=== PATIENT | male | born 1945 | race Caucasian/White ===

== ENCOUNTER 2022-03-09 05:54 | Day surgery (SDC) | payer MEDICARE, BC ==
[2022-03-07 16:17] LABS: CLARITY,URINE CLEAR (Clear); COLOR,URINE YELLOW (Yellow); GLUCOSE, URINE NEGATIVE (Neg); KETONES,URINE NEGATIVE (Neg); LEUKOCYTE ESTERASE ,URINE NEGATIVE (Neg); NITRITES, URINE NEGATIVE (Neg); OCCULT BLOOD,URINE NEGATIVE (Neg); PROTEIN,URINE NEGATIVE (Neg); UROBILINOGEN,URINE 0.2 E.U/dL (0.2-1.0)
[2022-03-07 16:18] LABS: UA COLLECTION TYPE NON-SPECIFIED
[2022-03-07 16:20] LABS: BASOPHILS # (AUTO) 0.1 X10'3 (0-0.2); BASOPHILS % (AUTO) 0.9 % (0-1); EOSINOPHILS # (AUTO) 0.1 X10'3 (0-0.9); LYMPHOCYTES # (AUTO) 2.1 X10'3 (1.1-4.8); MEAN CORPUSCULAR HEMOGLOBIN 30.1 PG (27.0-31.0); MEAN CORPUSCULAR HGB CONC 33.5 g/dL (33.0-36.5); MEAN CORPUSCULAR VOLUME 89.8 FL (78-98); MEAN PLATELET VOLUME 7.2 FL (7.4-10.4); MONOCYTES # (AUTO) 0.4 X10'3 (0-0.9); MONOCYTES % (AUTO) 6.4 % (2-12); NEUTROPHILS # (AUTO) 3.8 X10'3 (1.8-7.7); NEUTROPHILS % (AUTO) 59.7 % (42-75); PRE OP HEMATOCRIT 44.5 % (42.0-52.0); PRE OP HEMOGLOBIN 14.9 g/dL (14.0-17.9); PRE OP PLATELET COUNT 272 X10'3 (140-440); RED BLOOD COUNT 4.96 X10'6 (4.70-6.10); RED CELL DISTRIBUTION WIDTH 14.3 % (11.5-14.5)
[2022-03-07 16:35] LABS: ALBUMIN 3.7 G/DL (3.4-5.0); ALKALINE PHOSPHATASE 57 IU/L (46-116); BLOOD UREA NITROGEN 27 MG/DL (7-18); BUN/CREATININE RATIO 15.2 (5.4-32.0); CHLORIDE 103 MMOL/L (99-107); CREATININE 1.78 MG/DL (0.60-1.10); PRE OP ALT 29 U/L (30-65); PRE OP ANION GAP 10 (8-16); PRE OP AST 34 U/L (10-37); PRE OP BILIRUB, TOTAL 0.3 MG/DL (0.0-1.0); PRE OP GLUCOSE 143 MG/DL (70-104); PRE OP POTASSIUM 3.9 MMOL/L (3.4-5.1); PRE OP SODIUM 139 MMOL/L (135-145); TOTAL CARBON DIOXIDE 26.4 MMOL/L (24-32); TOTAL PROTEIN 7.4 G/DL (6.4-8.2); eGFR 38 ML/MIN
[~2022-03-09] VITALS: Ht 182.9 cm; Wt 97.1 kg
[2022-03-09] VITALS (14 sets, daily range): BP systolic 108–159; BP diastolic 58–111
[~2022-03-09 05:54] MED LIST: ASPI-611 PO; CHOL125C7 PO; DULA0.75 SQ; LANS30CA37 PO; LISI1TAB53 PO; METF500T PO; SIMV-45 PO; TEST200V33 IM; ceFAZolin inj. 2,000 MG in dextrose 5%-water 100 ML IV ONE; famotidine 20mg tablet PO ONE; ringers solution, lacted 1,000 ML IV SCH
--- NOTE | 2022-03-09 06:30 | NUR ---
IV PLACED BY STUDENT. 20G RAC, FLOW IS GOOD.
[2022-03-09] MEDS ORDERED: BUPIVAcaine/PF 2.5 mg/ml (0.25%) 30ml vial ONE (06:38)
[2022-03-09] MEDS ORDERED: rocuronium 10mg/ml inj IV ONE (07:51)
[2022-03-09] MEDS ORDERED: LIDOcaine 2% (20mg/ml) 5ml vial ONE (07:51)
[2022-03-09] MEDS ORDERED: propofol inj 20 ML IV ONE (07:51)
[2022-03-09] MEDS ORDERED: dexamethasone sod phosphate 4mg/ml inj. ONE (07:52)
[2022-03-09] MEDS ORDERED: ondansetron/PF 4mg/2ml inj ONE (07:52)
[2022-03-09] MEDS ORDERED: fentaNYL/PF 50MCG/1 ML 2ML syringe ONE (07:54)
[2022-03-09] MEDS ORDERED: morphine 2 MG/ML inj. syringe IV PRN (08:00)
[2022-03-09] MEDS ORDERED: ondansetron/PF 4mg/2ml inj IV PRN (08:00)
[2022-03-09] MEDS ORDERED: hydrALAZINE 20mg/ml inj. IV PRN (08:00)
[2022-03-09] MEDS ORDERED: labetalol 20mg/4ml (5mg/ml) syringe IV PRN (08:00)
[2022-03-09] MEDS ORDERED: ringers solution, lacted 1,000 ML IV SCH (08:00)
[2022-03-09] MEDS ORDERED: morphine 4 MG/ML inj SYRINge IV PRN (08:00)
[2022-03-09] MEDS ORDERED: fentaNYL/PF 50MCG/1 ML 2ML syringe IV PRN ×2 (08:00)
[2022-03-09] MEDS ORDERED: glycopyrrolate 0.2mg/ml inj ONE (08:10)
[2022-03-09] MEDS ORDERED: neostigmine methylsulfate 1 MG/ML 10ml vial ONE (08:10)
--- NOTE | 2022-03-09 09:24 | NUR ---
Received from OR via , accompanied by Anesthesiologist and report given by APOLINAR Anesthesiologist. PATIENT WAKING UP, SEVERE PAIN ON ABDOMEN, V/S WNL, PIV 20G RIGHT FOREARM, DERMABONDED LAPS SITES X3 CLOSED CDI TO ABDOMEN. Addendum: 03/09/22 at 0948 by Tera Lizama RN Amended: Links added.
[2022-03-09] MEDS ORDERED: HYDROcodone/acetaminophen 10/325mg tab PO ONE (11:30)
--- NOTE | 2022-03-09 11:44 | NUR ---
ALL DISCHARGE CRITERIA HAS BEEN MET. VSS, PAIN AT A TOLERABLE LEVEL, VOIDING 60 CC OF URINE WITH BLADDER SCANNER NOTED OF 66 CC OF URINE AND ABLE TO SAFELY AMBULATE AND TRANSFER SELF. IV TAKEN OUT WITHOUT ANY COMPLICATIONS. ALL DISCHARGE INSTRUCTIONS COVERED WITH PATIENT AND ALL QUESTIONS ANSWERED. PATIENT TAKEN OUT VIA WHEELCHAIR WITH ALL BELONGINGS TO PERSONAL VEHICLE WHERE FAMILY DROVE PATIENT HOME. Addendum: 03/09/22 at 1150 by Tera Lizama RN Amended: Links added.
== END 2022-03-09 11:49 | disposition home or self-care (01) ==
LOC: PAS 05:54
PROVIDERS: ATTEND Surgery
DX: K40.90 Unilateral inguinal hernia, without obstruction or gangrene, not specified as recurrent (principal); E11.22 Type 2 diabetes mellitus with diabetic chronic kidney disease; I12.9 Hypertensive chronic kidney disease with stage 1 through stage 4 chronic kidney disease, or unspecified chronic kidney disease; N18.30 Chronic kidney disease, stage 3 unspecified; M19.90 Unspecified osteoarthritis, unspecified site; Z79.899 Other long term (current) drug therapy; Z98.890 Other specified postprocedural states; Z79.82 Long term (current) use of aspirin
CPT/HCPCS: 36415; 49650; 80053; 81003; 82948; 85025; 93005; C1758; C1781; J0690; J1100; J2270; J2405; J2704; J2710; J3010; J3490; J7030; J7060; J7120; Z7506; Z7508; Z7512; A4215; A4618; J7040